=== PATIENT | female | born 1990 | race Caucasian/White ===

== ENCOUNTER → 2018-08-23 | Outpatient (CLI) | payer BC ==
[2015-12-22 12:25] VITALS: BMI 29.6
[~2018-08-23] MED LIST: ACET-1966 PO; ESCI20TA38 PO; FEXO1TAB63 PO; IBUP100T52 PO; IBUP800T37 PO; METF-450 PO; MONT10TA PO; PREN-129 PO; RHO(150015 IM
== END ==
LOC: LAB 12:02
PROVIDERS: ATTEND Obstetrics & Gynecology
DX: O20.0 Threatened abortion (principal)
CPT/HCPCS: 36415; 84702

== ENCOUNTER → 2018-08-25 | Outpatient (CLI) | payer BC ==
[2015-12-22 12:25] VITALS: BMI 29.6
== END ==
LOC: LAB 12:17
PROVIDERS: ATTEND Obstetrics & Gynecology
DX: O20.0 Threatened abortion (principal)
CPT/HCPCS: 36415; 84702

== ENCOUNTER → 2018-09-03 | Outpatient (REF) | payer BC ==
[2015-12-22 12:25] VITALS: BMI 29.6
== END ==
LOC: ZZSENDIN 14:46
PROVIDERS: ATTEND Obstetrics & Gynecology
DX: O03.9 Complete or unspecified spontaneous abortion without complication (principal)
CPT/HCPCS: 84702